=== PATIENT | female | born 1990 | race Two or more races ===

== ENCOUNTER 2018-10-21 14:45 | Outpatient (CLI) | payer OTHER | END 2018-10-21 15:30 | disposition home or self-care (01) | LOC: NST 14:45 | DX: Z34.83 Encounter for supervision of other normal pregnancy, third trimester (principal) ==

== ENCOUNTER 2018-10-28 16:00 | Outpatient (CLI) | payer OTHER | END 2018-10-28 17:15 | disposition home or self-care (01) | LOC: NST 16:00 | DX: Z34.83 Encounter for supervision of other normal pregnancy, third trimester (principal) ==

== ENCOUNTER 2018-10-30 08:43 | Inpatient (IN) | payer OTHER ==
[~2018-10-30] VITALS: Ht 162.6 cm; Wt 90.3 kg
== END 2018-11-01 11:19 | disposition home or self-care (01) | DRG 768 ==
LOC: LDR 08:43 → OB/GYN 16:49
PROVIDERS: ADMIT Obstetrics & Gynecology
PROC: 10E0XZZ Delivery of Products of Conception, External Approach (ICD-10-PCS; principal; 2018-10-30)
PROC: 0DQR0ZZ Repair Anal Sphincter, Open Approach (ICD-10-PCS; 2018-10-30)
PROC: 0W8NXZZ Division of Female Perineum, External Approach (ICD-10-PCS; 2018-10-30)
PROC: 3E033VJ Introduction of Other Hormone into Peripheral Vein, Percutaneous Approach (ICD-10-PCS; 2018-10-30)
PROC: 4A1HX4Z Monitoring of Products of Conception, Cardiac Electrical Activity, External Approach (ICD-10-PCS; 2018-10-30)
DX: O70.4 Anal sphincter tear complicating delivery, not associated with third degree laceration (principal); Z37.0 Single live birth; Z3A.39 39 weeks gestation of pregnancy; Z88.0 Allergy status to penicillin